=== PATIENT | female | born 1945 | race Native Hawaiian/Other Pacific Islander ===

== ENCOUNTER 2016-09-17 09:01 | Outpatient (CLI) | payer OTHER ==
[~2016-09-17 09:01] MED LIST: AMLO5TAB PO; BENZONATATE200 MG PO; BISO5TAB2 PO; BISOPROL FUM5 MG PO; BYETTA10 MCG SC; CETI10TA PO; CIPR500T PO; CRESTOR20 MG PO; DIPHEN/ATROP2.5 MG OR; ESTRACE2 MG PO; FLUT0.05 NAS; GEMF600T17 PO; GLIP10TA55 PO; GLIP5TAB65 PO; LEVO0.0529 PO; LISI10TA11 PO; LOTRIMIN AF FOR H1 % EX; METF500T PO; MONT10TA PO; TRILIPIX135 MG OR
[2016-09-17 09:54] LABS: POTASSIUM 4.3 mmol/L (3.6-5.2)
== END 2016-09-17 23:39 | disposition home or self-care (01) ==
LOC: LABW 09:01
PROVIDERS: Specialist
DX: I10 Essential (primary) hypertension (principal); E78.4 Other hyperlipidemia; I49.5 Sick sinus syndrome; Z95.0 Presence of cardiac pacemaker; Z79.899 Other long term (current) drug therapy; Z51.81 Encounter for therapeutic drug level monitoring
CPT/HCPCS: 36415; 80053; 80061; 83036

== ENCOUNTER 2017-03-24 08:56 | Outpatient (CLI) | payer OTHER ==
[2017-03-24 09:31] LABS: POTASSIUM 4.6 mmol/L (3.6-5.2)
== END 2017-03-24 19:05 | disposition home or self-care (01) ==
LOC: LABW 08:56
PROVIDERS: Specialist
DX: I10 Essential (primary) hypertension (principal); I49.5 Sick sinus syndrome; E78.4 Other hyperlipidemia; Z95.0 Presence of cardiac pacemaker; E11.9 Type 2 diabetes mellitus without complications; Z79.899 Other long term (current) drug therapy; Z51.81 Encounter for therapeutic drug level monitoring
CPT/HCPCS: 36415; 80053; 80061

== ENCOUNTER 2017-10-06 08:39 | Outpatient (CLI) | payer OTHER ==
[2017-10-06 09:18] LABS: POTASSIUM 4.5 mmol/L (3.6-5.2)
== END 2017-10-06 19:05 | disposition home or self-care (01) ==
LOC: LABW 08:39
PROVIDERS: Specialist
DX: I10 Essential (primary) hypertension (principal); E78.4 Other hyperlipidemia; I49.5 Sick sinus syndrome; Z79.899 Other long term (current) drug therapy; Z51.81 Encounter for therapeutic drug level monitoring
CPT/HCPCS: 36415; 80053; 80061

== ENCOUNTER 2018-04-12 08:19 | Outpatient (CLI) | payer OTHER ==
[2018-04-12 09:20] LABS: POTASSIUM 4.2 mmol/L (3.6-5.2)
== END 2018-04-12 19:12 | disposition home or self-care (01) ==
LOC: LABW 08:19
PROVIDERS: Specialist
DX: E78.5 Hyperlipidemia, unspecified (principal); I10 Essential (primary) hypertension; I49.5 Sick sinus syndrome; Z95.0 Presence of cardiac pacemaker; Z79.899 Other long term (current) drug therapy
CPT/HCPCS: 36415; 80053; 80061

== ENCOUNTER 2018-05-17 08:26 | Outpatient (CLI) | payer OTHER ==
[2018-05-17 09:02] LABS: PLATELET COUNT 273 K/uL (152-353)
== END 2018-05-17 23:27 | disposition home or self-care (01) ==
LOC: LABW 08:26
PROVIDERS: Internal Medicine
DX: E11.9 Type 2 diabetes mellitus without complications (principal); D64.9 Anemia, unspecified; E03.9 Hypothyroidism, unspecified; I10 Essential (primary) hypertension; R82.99 Other abnormal findings in urine
CPT/HCPCS: 36415; 81000; 82043; 82570; 83036; 84439; 84443; 85027; 87077; 87086; 87088; 87186

== ENCOUNTER 2018-10-14 09:06 | Outpatient (CLI) | payer OTHER ==
[2018-10-14 09:50] LABS: POTASSIUM 4.6 mmol/L (3.6-5.2)
== END 2018-10-14 20:22 | disposition home or self-care (01) ==
LOC: LABW 09:06
PROVIDERS: Specialist
DX: I10 Essential (primary) hypertension (principal); E11.9 Type 2 diabetes mellitus without complications; E03.9 Hypothyroidism, unspecified; D64.9 Anemia, unspecified; E78.5 Hyperlipidemia, unspecified; Z79.899 Other long term (current) drug therapy
CPT/HCPCS: 36415; 80053; 80061; 81000; 82043; 82570; 83036; 84439; 84443; 87077; 87086; 87088; 87186

== ENCOUNTER 2019-04-26 12:09 | Outpatient (CLI) | payer OTHER | END 2019-04-26 22:57 | disposition home or self-care (01) | LOC: LABW 12:09 | DX: E11.9 Type 2 diabetes mellitus without complications (principal); R82.998 Other abnormal findings in urine | CPT/HCPCS: 81000; 87077; 87086; 87088; 87186 ==

== ENCOUNTER 2019-05-31 08:58 | Outpatient (CLI) | payer OTHER ==
[2019-05-31 09:48] LABS: POTASSIUM 4.8 mmol/L (3.6-5.2)
== END 2019-05-31 20:09 | disposition home or self-care (01) ==
LOC: LABW 08:58
PROVIDERS: Specialist
DX: I10 Essential (primary) hypertension (principal); E78.49 Other hyperlipidemia; Z79.899 Other long term (current) drug therapy
CPT/HCPCS: 36415; 80053; 80061

== ENCOUNTER 2019-11-16 09:18 | Outpatient (CLI) | payer OTHER ==
[2019-11-16 10:04] LABS: PLATELET COUNT 333 K/uL (152-353)
[2019-11-16 10:13] LABS: POTASSIUM 4.8 mmol/L (3.6-5.2)
== END 2019-11-16 19:24 | disposition home or self-care (01) ==
LOC: LABW 09:18
PROVIDERS: Nurse Practitioner Family
DX: E11.9 Type 2 diabetes mellitus without complications (principal); L65.0 Telogen effluvium; L65.9 Nonscarring hair loss, unspecified; R82.998 Other abnormal findings in urine
CPT/HCPCS: 80053; 80061; 81000; 82043; 82570; 82728; 83036; 83540; 83550; 84439; 84443; 85027; 86038; 86376; 87077; 87086; 87088; 87186

== ENCOUNTER 2020-04-18 00:04 | Emergency (ER) | payer OTHER ==
[~2020-04-18] VITALS: Ht 160 cm; Wt 64.9 kg
[2020-04-18 02:13] LABS: PLATELET COUNT 284 K/uL (152-353)
[2020-04-18 02:32] LABS: POTASSIUM 5.8 mmol/L (3.6-5.2)
[2020-04-18 03:41] VITALS: BP 136/64; TEMP 98.1
== END 2020-04-18 03:43 | disposition short-term general hospital (02) ==
LOC: ED 00:04
PROVIDERS: Emergency Medicine Emergency Medical Services
PROC: 2W3LX1Z Immobilization of Right Lower Extremity using Splint (ICD-10-PCS; principal; 2020-04-18)
PROC: 0T9B70Z Drainage of Bladder with Drainage Device, Via Natural or Artificial Opening (ICD-10-PCS; 2020-04-18)
DX: S72.491A Other fracture of lower end of right femur, initial encounter for closed fracture (principal); S42.294A Other nondisplaced fracture of upper end of right humerus, initial encounter for closed fracture; W06.XXXA Fall from bed, initial encounter; Y92.89 Other specified places as the place of occurrence of the external cause
CPT/HCPCS: 36415; 51702; 80053; 85027; 85610; 85730; 96360; 96375; 96376; 99285; J2270

== ENCOUNTER 2020-05-04 14:55 | Inpatient (IN) | payer OTHER ==
[~2020-05-04] VITALS: Ht 160 cm; Wt 111.1 kg
[2020-05-04 16:00] VITALS: BP 127/79; TEMP 98.3; Ht 160 cm; Wt 111.1 kg
[2020-05-04] MEDS ORDERED: LIPITOR40 MG PO (18:29)
[2020-05-04] MEDS ORDERED: CETI10TA PO (18:30)
[2020-05-04] MEDS ORDERED: VICTOZA18 MG/3 ML SC (18:30)
[2020-05-04] MEDS ORDERED: LEVO0.0723 PO (18:31)
[2020-05-04] MEDS ORDERED: GLIP10TA55 PO (18:32)
[2020-05-04] MEDS ORDERED: METF500T PO (18:32)
[2020-05-04] MEDS ORDERED: FENOFIBRATE134 M1 PO (18:34)
[2020-05-04] MEDS ORDERED: ALPR0.5T24 PO (18:35)
[2020-05-04 20:00] VITALS: BP 137/60; TEMP 99.7
[2020-05-05 08:00] VITALS: BP 144/60; TEMP 97.9
[2020-05-05 19:59] VITALS: BP 123/42; TEMP 97.9
[2020-05-06 08:00] VITALS: BP 129/59; TEMP 97.3
[2020-05-06 20:00] VITALS: BP 132/52; TEMP 98.4
[2020-05-07 08:00] VITALS: BP 128/54; TEMP 97.9
[2020-05-07 20:00] VITALS: BP 134/68; TEMP 98.1
[2020-05-08 08:00] VITALS: BP 133/61; TEMP 97.9
[2020-05-08 20:00] VITALS: BP 131/86; BP 147/58; TEMP 98.7; TEMP 99.8
[2020-05-09 08:00] VITALS: BP 132/55; TEMP 97.9
[2020-05-09 19:36] LABS: PLATELET COUNT 403 K/uL (152-353)
[2020-05-09 19:53] VITALS: BP 130/52; TEMP 98.7
[2020-05-09 20:23] LABS: POTASSIUM 4.8 mmol/L (3.6-5.2)
[2020-05-10 08:00] VITALS: BP 143/60; TEMP 97.8
[2020-05-10 19:47] VITALS: BP 124/51; TEMP 98.9
[2020-05-11 08:00] VITALS: BP 116/56; TEMP 97.6
[2020-05-11 20:00] VITALS: BP 131/57; TEMP 98.4
[2020-05-12 12:44] LABS: POTASSIUM 4.2 mmol/L (3.6-5.2)
[2020-05-12 20:00] VITALS: BP 150/66; TEMP 98.8
[2020-05-13 20:05] VITALS: BP 120/64; TEMP 98.1
[2020-05-14 08:00] VITALS: BP 137/60; TEMP 98.1
[2020-05-14 20:00] VITALS: BP 138/53; TEMP 98.2
[2020-05-15 08:00] VITALS: BP 120/56; TEMP 97.8
[2020-05-15 19:40] VITALS: BP 150/54; TEMP 98.8
[2020-05-16 08:00] VITALS: BP 92/50; TEMP 97.8
[2020-05-16 20:00] VITALS: BP 156/56; TEMP 98.7
[2020-05-17 08:00] VITALS: BP 130/54; TEMP 97.6
[2020-05-17 20:25] VITALS: BP 124/54; TEMP 98.7
[2020-05-18 08:00] VITALS: BP 123/53; TEMP 97.4
[2020-05-18 20:00] VITALS: BP 103/55; TEMP 98.5
[2020-05-19 07:40] VITALS: BP 122/58; TEMP 97.6
[2020-05-19 20:00] VITALS: BP 127/60; TEMP 98.5
[2020-05-20 08:00] VITALS: BP 127/43; TEMP 97.6
[2020-05-20 11:59] VITALS: BP 122/62
[2020-05-20 20:00] VITALS: BP 136/52; TEMP 98.4
[2020-05-21 08:00] VITALS: BP 114/62; TEMP 97.7
[2020-05-21] MEDS ORDERED: BLOOMIS59 PO ×2 (13:17→13:23)
== END 2020-05-21 17:42 | disposition home or self-care (01) | DRG 948 ==
LOC: MED/SURG 14:55
PROVIDERS: Internal Medicine; ADMIT Internal Medicine Endocrinology, Diabetes & Metabolism
DX: R53.1 Weakness (principal); N18.4 Chronic kidney disease, stage 4 (severe); E87.2 Acidosis; R26.89 Other abnormalities of gait and mobility; Z91.81 History of falling; E78.49 Other hyperlipidemia; E03.8 Other specified hypothyroidism; E11.22 Type 2 diabetes mellitus with diabetic chronic kidney disease; I12.9 Hypertensive chronic kidney disease with stage 1 through stage 4 chronic kidney disease, or unspecified chronic kidney disease; R62.7 Adult failure to thrive; S42.291D Other displaced fracture of upper end of right humerus, subsequent encounter for fracture with routine healing; S72.492D Other fracture of lower end of left femur, subsequent encounter for closed fracture with routine healing; D63.8 Anemia in other chronic diseases classified elsewhere; E11.42 Type 2 diabetes mellitus with diabetic polyneuropathy
CPT/HCPCS: 36415; 80048; 80053; 82306; 82310; 82607; 82728; 83540; 83970; 84100; 84443; 85027; 87081

== ENCOUNTER 2020-07-18 09:17 | Outpatient (CLI) | payer OTHER ==
[~2020-07-18 09:17] MED LIST changes: +ALPR0.5T24 PO; +BLOOMIS59 PO; +FENOFIBRATE134 M1 PO; +LEVO0.0723 PO; +LIPITOR40 MG PO; +VICTOZA18 MG/3 ML SC
[2020-07-18 10:26] LABS: POTASSIUM 4.4 mmol/L (3.6-5.2)
== END 2020-07-18 23:58 | disposition home or self-care (01) ==
LOC: LABW 09:17
PROVIDERS: ATTEND Specialist
DX: I10 Essential (primary) hypertension (principal); E78.49 Other hyperlipidemia; I49.5 Sick sinus syndrome; Z95.0 Presence of cardiac pacemaker; Z79.899 Other long term (current) drug therapy
CPT/HCPCS: 80053; 80061; 83036

== ENCOUNTER 2020-12-25 14:43 | Outpatient (CLI) | payer OTHER | END 2020-12-25 19:53 | disposition home or self-care (01) | LOC: CT 14:43 | PROVIDERS: ATTEND Internal Medicine | DX: R55 Syncope and collapse (principal) ==

== ENCOUNTER 2021-01-29 09:46 | Outpatient (CLI) | payer OTHER | END 2021-01-29 22:41 | disposition home or self-care (01) | LOC: LABW 09:46 | PROVIDERS: ATTEND Specialist | DX: I10 Essential (primary) hypertension (principal); E78.49 Other hyperlipidemia; Z95.0 Presence of cardiac pacemaker; E11.9 Type 2 diabetes mellitus without complications; Z79.899 Other long term (current) drug therapy | CPT/HCPCS: 36415; 80053; 80061; 83036 ==

== ENCOUNTER 2021-09-03 09:53 | Outpatient (CLI) | payer OTHER ==
[2021-09-03 10:42] LABS: POTASSIUM 4.2 mmol/L (3.6-5.2)
== END 2021-09-03 19:12 | disposition home or self-care (01) ==
LOC: LABW 09:53
PROVIDERS: ATTEND Specialist
DX: I10 Essential (primary) hypertension (principal); E78.5 Hyperlipidemia, unspecified; Z79.899 Other long term (current) drug therapy
CPT/HCPCS: 36415; 80053; 80061; 83036

== ENCOUNTER 2021-10-29 12:43 | Outpatient (CLI) | payer OTHER ==
[2021-10-29 13:14] LABS: PLATELET COUNT 280 K/uL (152-353)
== END 2021-10-29 19:00 | disposition home or self-care (01) ==
LOC: LAB 12:43
PROVIDERS: ATTEND Internal Medicine
DX: E11.9 Type 2 diabetes mellitus without complications (principal); E03.8 Other specified hypothyroidism; R82.998 Other abnormal findings in urine
CPT/HCPCS: 81000; 84439; 84443; 85027; 87077; 87086; 87088; 87186

== ENCOUNTER 2022-03-24 09:22 | Outpatient (CLI) | payer OTHER | END 2022-03-24 18:56 | disposition home or self-care (01) | LOC: LABW 09:22 | PROVIDERS: ATTEND Specialist | DX: E78.49 Other hyperlipidemia (principal); E11.9 Type 2 diabetes mellitus without complications | CPT/HCPCS: 36415; 80053; 80061; 83036 ==

== ENCOUNTER 2022-05-14 09:52 | Outpatient (CLI) | payer OTHER ==
[2022-05-14 10:33] LABS: PLATELET COUNT 279 K/uL (152-353)
[2022-05-14 10:59] LABS: POTASSIUM 4.4 mmol/L (3.6-5.2)
== END 2022-05-14 19:19 | disposition home or self-care (01) ==
LOC: LABW 09:52
PROVIDERS: ATTEND Internal Medicine
DX: E11.22 Type 2 diabetes mellitus with diabetic chronic kidney disease (principal); N18.32 Chronic kidney disease, stage 3b; R53.83 Other fatigue; E53.8 Deficiency of other specified B group vitamins
CPT/HCPCS: 36415; 80053; 81000; 82043; 82306; 82330; 82570; 82607; 82728; 82746; 83036; 83540; 83550; 83735; 83970; 84100; 84156; 84439; 84443; 85027; 85652; 87077; 87086; 87088; 87186

== ENCOUNTER 2022-05-16 12:44 | Outpatient (CLI) | payer OTHER | END 2022-05-16 21:30 | disposition home or self-care (01) | LOC: LAB 12:44 | PROVIDERS: ATTEND Internal Medicine | DX: E11.22 Type 2 diabetes mellitus with diabetic chronic kidney disease (principal); N18.32 Chronic kidney disease, stage 3b; R53.83 Other fatigue; E53.8 Deficiency of other specified B group vitamins | CPT/HCPCS: 86038 ==

== ENCOUNTER 2022-09-04 09:45 | Outpatient (CLI) | payer OTHER ==
[2022-09-04 10:56] LABS: POTASSIUM 4.1 mmol/L (3.6-5.2)
== END 2022-09-04 18:59 | disposition home or self-care (01) ==
LOC: LABW 09:45
PROVIDERS: ATTEND Specialist
DX: E78.49 Other hyperlipidemia (principal)
CPT/HCPCS: 36415; 80053; 80061

== ENCOUNTER 2022-09-29 09:36 | Outpatient (CLI) | payer OTHER ==
[2022-09-29 10:03] LABS: PLATELET COUNT 296 K/uL (152-353)
[2022-09-29 10:34] LABS: POTASSIUM 4.2 mmol/L (3.6-5.2)
== END 2022-09-29 20:18 | disposition home or self-care (01) ==
LOC: LABW 09:36
PROVIDERS: ATTEND Internal Medicine
DX: E11.22 Type 2 diabetes mellitus with diabetic chronic kidney disease (principal); N18.4 Chronic kidney disease, stage 4 (severe); R53.83 Other fatigue; E53.8 Deficiency of other specified B group vitamins
CPT/HCPCS: 36415; 80053; 81000; 82043; 82330; 82552; 82570; 82607; 82728; 82746; 83036; 83540; 83550; 83735; 83970; 84100; 84156; 84439; 84443; 84550; 85027; 85652; 86038; 87077; 87086; 87088; 87186

== ENCOUNTER 2022-12-22 08:49 | Outpatient (CLI) | payer OTHER ==
[2022-12-22 09:16] LABS: PLATELET COUNT 431 K/uL (152-353)
[2022-12-22 09:56] LABS: POTASSIUM 3.9 mmol/L (3.6-5.2)
== END 2022-12-22 19:37 | disposition home or self-care (01) ==
LOC: LABW 08:49
PROVIDERS: ATTEND Internal Medicine
DX: E11.22 Type 2 diabetes mellitus with diabetic chronic kidney disease (principal); N18.4 Chronic kidney disease, stage 4 (severe); R53.83 Other fatigue
CPT/HCPCS: 36415; 80053; 81002; 82330; 82550; 82570; 82607; 82728; 82746; 83036; 83540; 83550; 83735; 83970; 84100; 84156; 84439; 84443; 84550; 85027; 85652

== ENCOUNTER 2023-06-11 10:29 | Outpatient (CLI) | payer OTHER | END 2023-06-11 19:03 | disposition home or self-care (01) | LOC: CT 10:29 | PROVIDERS: ATTEND Internal Medicine | DX: K57.90 Diverticulosis of intestine, part unspecified, without perforation or abscess without bleeding (principal) | CPT/HCPCS: 36415; 82565; 84520 ==